=== PATIENT | male | born 1950 | race Caucasian/White ===

== ENCOUNTER 2021-09-22 11:34 | Day surgery (SDC) | payer OTHER, SELFPAY ==
[2021-09-22] MEDS: Lactated Ringers 1,000 ML 15 ML IV (12:15)
[2021-09-22 12:21] VITALS: BP 149/83; PULSE 61; RESP 16; TEMP 36.2; O2SAT 96; BMI 34.7
--- NOTE | 2021-09-22 13:30 | COLBX_PTH ---
PATIENT: TRANG REYES LOC: EN U#:[id number] AGE/SX: 71/M ROOM: RE09/22/[address]: Dr. Jerry Barrera MD : 1950 BED: DIS: 09/22/2021 SPEC #: [id number] RECD: 09/22/21 15:10 STATUS: YESSI CHERELLE #: [id number] CARLOS: 09/22/21 13:[address]: Jerry Barrera DEPT: SURGICAL PATHOLOGY RECD BY: Cammy Felix ENTERED: 09/25/21 12:25 SP TYPE: COLON BX OTHR DR: [facility] Tissues: Descending colon Procedures: Surgery Specimen Level IV HEADER OPERATION: Colonoscopy (MAC) with biopsies PRE-OP DIAGNOSIS: History of colon polyps TISSUE SUBMITTED: Descending colon polyp biopsy at 60 cm MICROSCOPIC DIAGNOSIS Descending colon polyp at 60 cm, biopsy: Benign mucosal polyp. See comment. AM:eladio 09/26/2021 COMMENT Neither hyperplastic nor adenomatous change is identified. Clinical correlation is suggested. MICROSCOPIC DESCRIPTION Slides are reviewed. GROSS DESCRIPTION Received in fixative is one container labeled with the patient's name and designated descending colon polyp. The specimen consists of one irregular fragment of light argueta soft tissue that measures 0.3 x 0.2 x 0.1 cm. The specimen is totally submitted in one cassette. / AM:eladio 09/25/2021 TC:5 CPT: 91810
--- NOTE | 2021-09-22 13:42 | PCM.HP.BLA ---
History and Physical Date of Admission: 09/22/21 Date of Service: 09/13/21 MR#:[id number]:[id number]: TRANG REYES #:[id number]:1950 Provider:Lynn Caldwell/Sex: 71/M [facility] Vital Signs 09/13/21 13:39 Height 5 ft 7 in Weight: 227 lb BMI 35.5 BP 148/90 H Blood Pressure Location Rt brachial Position Sitting Respiration 18 Pulse 71 Pulse Source Monitor Temp 97.4 F L Temp Source Temporal Pulse Oximetry (%) 91 Oxygen Delivery Method room air Intake Visit Reasons: CSCOPE Chief Complaint: c-scope Sap Basis Administrator Required: No Is patient in pain?: No Allergies No Known Allergies Allergy (Unverified 09/13/21 13:41) Medications albuterol sulfate 2.5 mg INHALATION Q6H PRN 09/13/21 [History Confirmed 09/13/21] amlodipine 5 mg tablet 5 mg PO DAILY 09/13/21 [History Confirmed 09/13/21] budesonide-formoterol HFA 160 mcg-4.5 mcg/actuation aerosol inhaler 1 puff INHALATION BID g 09/13/21 [History Confirmed 09/13/21] celecoxib 100 mg capsule 100 mg PO BID 09/13/21 [History Confirmed 09/13/21] cholecalciferol (vitamin D3) 25 mcg (1,000 unit) capsule 75 mcg PO DAILY cap 09/13/21 [History Confirmed 09/13/21] cyclobenzaprine 10 mg tablet 10 mg PO HS 09/13/21 [History Confirmed 09/13/21] hydrochlorothiazide 12.5 mg tablet 12.5 mg PO DAILY 09/13/21 [History Confirmed 09/13/21] ipratropium 20 mcg-albuterol 100 mcg/actuation mist for inhalation 1 puff INHALATION Q6H 09/13/21 [History Confirmed 09/13/21] potassium chloride 20 mEq tablet,extended release 20 meq PO DAILY 09/13/21 [History Confirmed 09/13/21] rosuvastatin 10 mg tablet 10 mg PO DAILY 09/13/21 [History Confirmed 09/13/21] sertraline 100 mg tablet 100 mg PO DAILY 09/13/21 [History Confirmed 09/13/21] [facility] Medical History (Updated 09/13/21 @ 18:[address] Jerry Barrera MD) Alcohol dependence Asthma Cervical spondylosis with radiculopathy COPD (chronic obstructive pulmonary disease) Dysthymia Fibromyalgia History of malignant neoplasm of prostate Hyperlipidemia Hypertension Mood disorder in conditions classified elsewhere Nicotine dependence Post traumatic stress disorder Shoulder pain Spinal stenosis, cervical region Syncope and collapse Surgical History (Updated 09/13/21 @ 13:37 by Liliya Tapia) History of colonoscopy History of fusion of cervical spine History of hip surgery History of prostatectomy Social History (Updated 09/13/21 @ 13:39 by Liliya Tapia) Smoking Status: Former smoker alcohol intake: never substance use type: does not use HPI HPI HPI: TRANG REYES, is a 71 M who presents to the office today for need to schedule surveillance colonoscopy secondary to history of polyps. They are referred for surgical consultation from the [place]. Patient has had prior colonoscopy. He estimates that he has had 2-3 prior scopes in total. His last colonoscopy was performed on 09/03/[address] Jyothi Marti of gastroenterology. Pathology from this scope was provided and was consistent only with eosinophilic infiltrate. However, mention is made from prior studies of polyps/adenomas. Patient has no personal history of IBD, diverticulitis, or colon cancer. They describe their bowel habits as normal. They have approximately 2 bowel movements per day and spend roughly 2 to 5 minutes minutes on the toilet without significant straining. They do not regularly take fiber supplements. Patient is not the best historian, but denies any family history of colon cancer, inflammatory bowel disease, and diverticulitis. The patient's weight is stable. Patient denies use of any blood thinners. He is a former smoker with cessation in 1969. Still he has COPD and requires frequent use of inhalers but no home O2. He denies any regular trouble with heartburn. Patient's only prior abdominal surgical procedure was a prostatectomy. ROS General General: Yes fatigue; No weight change, appetite, colon cancer, breast cancer or weakness HEENT HEENT: Yes eye surgery; No difficulty swallowing, eye injury, swollen glands or hoarseness Endo Endocrine: No thyroid disease, diabetes mellitus, thyroid cancer, Hair loss, heat intolerance or cold intolerance Skin Skin: No rash or changing moles Breast Breast: No left breast lump, right breast lump, nipple discharge, breast pain, abnormal mammogram, abnormal US or breast enlargement Musc Musculoskeletal: Yes back problems, arthritis and rheumatoid arthritis; No gout or joint pain Cardio Cardiovascular: No murmur, pacemaker, heart disease, atrial fibrillation, high blood pressure, heart attack, heart stent, palpitations, shortness of breat with exertion or chest pain Psych Psychiatric: No depression, anxiety or hearing voices Resp Respiratory: No shortness of breath, No sleep apnea, No cough, Yes COPD, Yes asthma, No emphysema and No wheezing Gastro Gastrointestinal: Yes abdominal pain, Yes nausea or vomiting, Yes diarrhea, No constipation, No blood in stool, No acid reflux, No hemorrhoids, No ulcers, No gallbladder problem and No black,tarry stools Gume Hematologic: Yes blood thinners, No blood disorders, No bleeding, No anemia and No blood clots Neuro Neurologic: No system reviewed and no additional complaints, except as documented, No as per HPI, No abnormal gait, No abnormal hearing, No abnormal movements, No abnormal speech, No behavioral changes, No burning sensations, No confusion, No convulsions, No disequilibrium, No dizziness, No localized weakness, No frequent falls, No headache(s), No lack of coordination, No loss of vision, No memory loss, Yes numbness, No other visual disturbances, No radicular pain, No restless legs, No sensory deficit, No syncope, Yes tingling, No tremor(s), No weakness and No other Exam Const General: cooperative, healthy appearing, comfortable (Except he becomes dyspneic with activity) and no acute distress Nutritional Appearance: obese Resp Effort & Inspection: labored (When lying flat) Auscultation: no rales, no rhonchi and no wheezes Other: Patient states that his respiratory difficulties are at baseline Cardio Rate: regular rate Rhythm: regular rhythm Heart Sounds: S1 normal and S2 normal GI Inspection: non-distended, obesity and scar (Extending from the umbilicus [id number]) Palpation: soft and nontender Assessment and Plan Assessment and Plan (1) History of colon polyps: Status: Acute Comment: This is a 71-year-old male who presents with a history of adenomatous colon polyps he was given 5-year follow-up due to this history following a colonoscopy in 2017. He denies any present issues with his bowels. Although he has some shortness of breath with limited activity, he states this is his baseline as he manages a diagnosis of COPD following a smoking history. Given patient's polyp history, repeat surveillance colonoscopy is indicated. We will plan to proceed with endoscopy under local MAC at first mutually available date. This procedure was discussed in detail including prep and need for local truck driver the day of of the procedure. I have also cautioned him that he should make us aware should his output remain cloudy the day of the procedure/following his prep so that we will have adequate visualization of his anatomy. Plan - Dr. Jerry Barrera MD: Plan will be to complete colonoscopy on first mutually available date under local MAC. Pre-procedure prep discussed and paper instructions provided. Patient is also made aware that he will need to have a local truck driver with him the day of the procedure. I have re-examined the patient. There are no clinical changes since date of exam. He confirms that his bowel prep was successful and that his output is clear. He denies any abdominal discomfort. His exam confirms this. Therefore, we will proceed with surveillance colonoscopy under local MAC as discussed above.
[2021-09-22 14:52] VITALS: BP 132/79; BP 149/83; PULSE 69; RESP 16; TEMP 36.8; O2SAT 95
[2021-09-22 14:55] VITALS: BP 127/58; BP 149/83; PULSE 64; RESP 16; O2SAT 93
--- NOTE | 2021-09-22 14:57 | OP.COLON_ITS ---
Patient Name: Kartik Matthews Procedure Date: 09/22/2021 2:08 PM Date of : 1950 Age: 71 Procedure: Colonoscopy Indications: High risk colon cancer surveillance: Personal history of colonic polyps Providers: Jerry Barrera MD Medicines: See the Anesthesia note for documentation of the administered medications Patient Profile: Last Colonoscopy: 5 years ago. Complications: No immediate complications. Estimated blood loss: Minimal. Procedure: Pre-Anesthesia Assessment: - The heart rate, respiratory rate, oxygen saturations, blood pressure, adequacy of pulmonary ventilation, and response to care were monitored throughout the procedure. After I obtained informed consent, the scope was passed under direct vision. Throughout the procedure, the patient's blood pressure, pulse, and oxygen saturations were monitored continuously. The Colonoscope was introduced through the anus and advanced to the cecum, identified by appendiceal orifice and ileocecal valve. The colonoscopy was performed without difficulty. The patient tolerated the procedure well. The quality of the bowel preparation was good. Scope In: 2:17:09 PM Scope Withdrawal Time 0 hours 22 minutes 21 seconds Scope Out: 2:46:16 PM Total Procedure Duration Time 0 hours 29 minutes 7 seconds Findings: The perianal and digital rectal examinations were normal. Pertinent negatives include normal sphincter tone. A 5 mm, non-bleeding polyp was found in the descending colon. The polyp was sessile. Biopsies were taken with a cold forceps for histology. Estimated blood loss was minimal. Internal hemorrhoids were found during retroflexion. The hemorrhoids were Grade II (internal hemorrhoids that prolapse but reduce spontaneously). No biopsies or other specimens were collected for this exam. Many medium-mouthed diverticula were found in the sigmoid colon. No biopsies or other specimens were collected for this exam. Impression: - One 5 mm, non-bleeding polyp in the descending colon. Biopsied. - Internal hemorrhoids. No specimens collected. - Diverticulosis in the sigmoid colon. No specimens collected. Recommendation: - Discharge patient to home (via wheelchair). - High fiber diet today. - Continue present medications. - Await pathology results. - Telephone my office for pathology results in 1 week. - Repeat colonoscopy in 5 years for surveillance based on pathology results. Procedure Code(s): --- Professional --- 22823, Colonoscopy, flexible; with biopsy, single or multiple Diagnosis Code(s): --- Professional --- Z86.010, Personal history of colonic polyps D12.4, Benign neoplasm of descending colon K64.1, Second degree hemorrhoids K57.30, Diverticulosis of large intestine without perforation or abscess without bleeding CPT copyright 2017 [employer]. All rights reserved. The codes documented in this report are preliminary and upon director mortgage review may be revised to meet current compliance requirements. Jerry Barrera MD 09/22/2021 2:56:18 PM This report has been signed electronically. Number of Addenda: 0 Note Initiated On: 09/22/2021 2:08 PM
[2021-09-22 15:00] VITALS: BP 102/57; BP 149/83; PULSE 61; RESP 16; O2SAT 92
[2021-09-22 15:06] VITALS: BP 125/74; BP 149/83; PULSE 60; RESP 16; TEMP 37.1; O2SAT 94
[2021-09-22 15:08] VITALS: BP 149/83
== END 2021-09-22 23:59 | disposition home or self-care (01) ==
LOC: EN 11:38 → AC 11:39
PROVIDERS: Visit Provider Surgery
PROC: 0DJD8ZZ Inspection of Lower Intestinal Tract, Via Natural or Artificial Opening Endoscopic (ICD-10-PCS; CPT 45378; principal; 2021-09-22 13:25)
DX: Z12.11 Encounter for screening for malignant neoplasm of colon (principal); J44.9 Chronic obstructive pulmonary disease, unspecified; D12.4 Benign neoplasm of descending colon; K57.30 Diverticulosis of large intestine without perforation or abscess without bleeding; K64.1 Second degree hemorrhoids; Z20.822 Contact with and (suspected) exposure to COVID-19; I10 Essential (primary) hypertension; E78.5 Hyperlipidemia, unspecified; M79.7 Fibromyalgia; M19.90 Unspecified osteoarthritis, unspecified site; F34.1 Dysthymic disorder; Z79.899 Other long term (current) drug therapy; Z86.010 Personal history of colon polyps; Z87.891 Personal history of nicotine dependence; Z90.79 Acquired absence of other genital organ(s)
CPT/HCPCS: G0121; 87426; 88305; J7120; J2405